=== PATIENT | female | born 1985 | race Caucasian/White ===

== ENCOUNTER 2020-04-12 14:24 | Outpatient (CLI) | payer OTHER, BC ==
--- NOTE | 2020-04-15 10:07 | Mammography Report ---
BILATERAL DIGITAL DIAGNOSTIC MAMMOGRAM 3D/2D: 04/12/2020 CLINICAL: Palpable left breast lump. Baseline exam. No prior exams were available for comparison. The tissue of both breasts is extremely dense, which l owers the sensitivity of mammography. There is a 1.5 cm irregular high density mass with an indistinct margin and grouped fine punctate aimee cifications in the left breast at 6 o'clock anterior depth. This is seen in additional views. This correlates as palpated. There also is an irregular equal density focal asymmetry with an obscured margin and grouped punctate calcifications in the left breast at 8 o'clock anterior depth. No other significant masses, calcifications, or other findings are seen in either breast. IMPRESSION: INCOMPLETE: NEEDS ADDITIONAL IMAGING EVALUATION The 1.5 cm irregular high density mass in the left breast at 6 o'clock anterior depth is indeterminat e. The irregular equal density focal asymmetry in the left breast at 8 o'clock anterior depth is indeter minate. An ultrasound is recommended. This was performed immediately following this exam. This exam was interpreted at Station ID: [id number]. NOTE: For mammograms, a report in lay terms will be sent to the patient. Approximately 15% of breast malignancies will not be visualized mammographically. In the management of a palpable breast mass, a negative mammogram must not discourage biopsy of a clinically suspicious lesion. Electronically Signed By: Katherine shanks/:04/12/2020 18:01:43 ACR BI-RADS Category 0: Incomplete 3340F PARENCHYMAL PATTERN: (VD) - The breast(s) demonstrate(s) extremely dense parenchyma, limiting the sen sitivity of mammography. BI-RADS CATEGORY: (0) - 0 Ultrasound [id number] Immediate follow-up LATERALITY: (B)
--- NOTE | 2020-04-15 10:08 | Ultrasound Report ---
LIMITED ULTRASOUND OF LEFT BREAST AND AXILLA: 04/12/2020 CLINICAL: Palpable left breast lump. No prior exams were available for comparison. Color flow ultrasound of the left breast 6 o'clock, 8 o'clock, and axilla regions was performed. Gr ay scale images of the real-time examination were reviewed. There is a 1.4 cm x 1.1 cm x 0.9 cm oval mass with a microlobulated margin in the left breast at 6 o' clock anterior depth 2 cm from the nipple. This correlates as palpated and with mammography findings . There are calcifications within the mass. Color flow imaging demonstrates that there is vasculari ty present. There also is a 0.5 cm x 0.4 cm x 0.9 cm irregular mass with an angular margin in the left breast at 8 o'clock in the retroareolar region 1 cm from the nipple. This irregular mass is hypoechoic. This correlates with mammography findings. There are related micro calcifications. Color flow imaging de monstrates that there is increased vascularity. Additionally, there is an irregular, enlarged, lobulated lymph node with eccentric cortical thickenin g up to 1.3 cm in the left axillary tail. This irregular lymph node displays fatty hilum. Color kay w imaging demonstrates that there is increased vascularity. IMPRESSION: SUSPICIOUS OF MALIGNANCY The 1.4 cm x 1.1 cm x 0.9 cm oval mass in the left breast at 6 o'clock anterior depth is suspicious o f malignancy. An ultrasound guided biopsy is recommended. The 0.5 cm x 0.4 cm x 0.9 cm irregular mass in the left breast at 8 o'clock in the retroareolar regio n is suspicious of malignancy. The irregular lymph node with eccentric cortical thickening in the left axillary tail is consistent w ith an enlarged lymph node and is suspicious of malignancy. An ultrasound guided biopsy is recommend ed. Findings and recommendations discussed with the patient by Dr. Angela Vazquez immediately following the study. This exam was interpreted at Station ID: [id number]. Electronically Signed By: Katherine shanks/:04/12/2020 18:08:48 Ultrasound BI-RADS: 4 Suspicious for malignancy BI-RADS CATEGORY: (4) - 4 None [id number] Immediate follow-up LATERALITY: ()
== END 2020-04-12 14:25 | disposition home or self-care (01) ==
LOC: DI 14:24
PROVIDERS: ATTEND Nurse Practitioner Family
DX: N63.25 Unspecified lump in the left breast, overlapping quadrants (principal); N63.24 Unspecified lump in the left breast, lower inner quadrant; R59.0 Localized enlarged lymph nodes
CPT/HCPCS: 76642; 77066

== ENCOUNTER 2020-05-08 13:32 | Outpatient (CLI) | payer OTHER, BC ==
[2020-05-08] MEDS ORDERED: BUFFERED LIDOCAINE 10 ML SYRINGE ONE ×3 (13:46→15:21)
[2020-05-08] MEDS ORDERED: BUFFERED LIDOCAINE 10 ML SYRINGE IU ONE (16:51)
--- NOTE | 2020-05-13 08:33 | Mammography Report ---
UNILATERAL LEFT DIGITAL DIAGNOSTIC MAMMOGRAM 3D/2D: 05/08/2020 CLINICAL: Post left breast ultrasound biopsy clip placement imaging. Comparison is made to exams dated: 04/12/2020 ultrasound, 04/12/2020 ultrasound, 04/12/2020 ultrasound, 04/12/2020 ultrasound, and 04/12/2020 mammogram - [facility]. There is a marker clip in the appropriate position in the left breast 6 o'clock position. The clip p laced in the left axilla is not visualized, as secondary to patient body habitus, the axilla was not able to be included in the mammogram field of view. IMPRESSION: POST PROCEDURE MAMMOGRAM FOR MARKER PLACEMENT There was a successful marker clip placement in the left breast at 6 o'clock position. The clip plac ed in the axilla is not evalauted secondary to incomplete visualization of the area. This exam was interpreted at Station ID: Unknown. NOTE: For mammograms, a report in lay terms will be sent to the patient. Approximately 15% of breast malignancies will not be visualized mammographically. In the management of a palpable breast mass, a negative mammogram must not discourage biopsy of a clinically suspicious lesion. Electronically Signed By: Angela Vazquez M.D. [facility]/:05/10/2020 15:27:39 ACR BI-RADS Category Post-procedure mammogram for marker placement Unknown BI-RADS CATEGORY: () - Unspecified - other recall n/a LATERALITY: (B)
== END 2020-05-08 13:33 | disposition home or self-care (01) ==
LOC: DI 13:32
PROVIDERS: ATTEND Nurse Practitioner Family
DX: C50.812 Malignant neoplasm of overlapping sites of left female breast (principal); C77.3 Secondary and unspecified malignant neoplasm of axilla and upper limb lymph nodes; Z17.0 Estrogen receptor positive status [ER+]
CPT/HCPCS: 19083; 38505

== ENCOUNTER 2021-08-29 19:44 | Day surgery (SDC) | payer BC, OTHER ==
[2021-08-29 20:19] LABS: BASOPHILS % (AUTO) 0.2 %; HGB - HEMOGLOBIN 12.7 g/dL (12.0-16.0); LYMPHOCYTES # (AUTO) 0.5 10^3/uL (1.5-3.5); MEAN CORPUSCULAR HGB CONC 34.3 g/dL (32.0-36.0); MEAN CORPUSCULAR VOLUME 87.3 fL (81.0-99.0); MEAN PLATELET VOLUME 8.1 fL (7.9-10.8); MONOCYTES # (AUTO) 0.9 10^3/uL (0.0-1.0); MONOCYTES % (AUTO) 6.7 %; NEUTROPHILS # (AUTO) 11.7 10^3/uL (1.5-6.6); NEUTROPHILS % (AUTO) 88.6 %; PLT - PLATELET COUNT 312 10^3/uL (130-450); RED BLOOD COUNT 4.24 10^6/uL (4.20-5.40); RED CELL DISTRIBUTION WIDTH 12.2 % (12.0-15.0); WHITE BLOOD COUNT 13.2 x10^3/uL (4.8-10.8)
[2021-08-29 20:32] LABS: ALBUMIN 4.4 g/dL (3.2-5.5); ALBUMIN/GLOBULIN RATIO 1.4 (1.0-2.2); BILIRUBIN,TOTAL 1.2 mg/dL (0.2-1.0); CALCIUM 9.6 mg/dL (8.5-10.3); CREATININE 0.7 mg/dL (0.4-1.0); POTASSIUM 3.6 mmol/L (3.5-5.0); TOTAL PROTEIN 7.6 g/dL (6.7-8.2)
--- NOTE | 2021-08-29 20:52 | ED Physician Documentation ---
PD HPI ABD PAIN - Stated complaint Stated Complaint: ABD PX - Chief complaint Chief Complaint: Abd Pain - History obtained from History obtained from: Patient - History of Present Illness Timing - onset: Enter time (13:00), Yesterday Timing - details: Gradual onset Pain level now: 8 Quality: Pain Location: All over / everywhere (predominantly RLQ) Radiation: Other (does not radiate from abdomen) Improved by: Laying still Worsened by: Moving, Palpation Associated symptoms: Nausea, Vomiting. No: Fever, Hematemesis, Diarrhea, Constipation, Dysuria Similar symptoms before: Other (some similarities to an episode of gastroenteritis she had in the past due to norovirus) Recently seen: Clinic (evaluated earlier today, advised to go to ED if worse) - Additional information Additional information: c/o abdominal pain, predominantly RLQ but otherwise feels the pain diffusely throughout abdomen, described as cramping, since yesterday at approximately 1 PM, associated with nausea and vomiting. Review of Systems Constitutional: denies: Fever, Chills, Sweats Cardiac: reports: Reviewed and negative Respiratory: reports: Reviewed and negative GI: reports: Abdominal Pain, Nausea, Vomiting. denies: Constipation, Diarrhea PD PAST MEDICAL HISTORY - Past Medical History Past Medical History: Yes CARDIAC SURGEON: Breast cancer - Past Surgical History Past Surgical History: Yes /CARDIAC SURGEON: Mastectomy (bilateral) - Allergies Allergies/Adverse Reactions: Allergies Allergy/AdvReac Type Severity Reaction Status Date / Time Pertussis Vaccines Allergy Unknown Verified 08/29/21 19:58 PD ED PE NORMAL - Vitals Vital signs reviewed: Yes - General General: Alert and oriented X 3, No acute distress, Well developed/nourished - HEENT HEENT: Moist mucous membranes - Neck Neck: Supple, no meningeal sign - Cardiac Cardiac: RRR, No murmur - Respiratory Respiratory: No respiratory distress, Clear bilaterally - Abdomen Abdomen: Soft, Non distended PD ED PE EXPANDED - Abdomen Abdomen: Tender to palpation, RLQ. No: Rebound, Guarding Results - Vitals Vitals: Vital Signs - 24 hr 08/29/21 08/29/21 08/30/21 19:51 22:22 00:07 Temperature 37.2 C 37.8 C Heart Rate 88 90 88 Respiratory 18 12 16 Rate Blood Pressure 128/70 129/74 134/72 H O2 Saturation 99 96 97 08/30/21 08/30/2122 02:27 04:00 04:03 Temperature Heart Rate 94 94 93 Respiratory 14 18 Rate Blood Pressure 101/52 L 116/78 116/78 O2 Saturation 96 95 94 08/30/21 08/30/21 06:00 08:00 Temperature Heart Rate 96 90 Respiratory 18 19 Rate Blood Pressure 114/62 119/60 O2 Saturation 98 99 Oxygen O2 Source Room air - Labs Labs: Laboratory Tests 08/29/21 08/29/21 08/29/21 20:13 20:15 20:15 WBC 13.2 H RBC 4.24 Hgb 12.7 Hct 37.0 MCV 87.3 MCH 30.0 MCHC 34.3 RDW 12.2 Plt Count 312 MPV 8.1 Neut # (Auto) 11.7 H Lymph # (Auto) 0.5 L [place] # (Auto) 0.9 Eos # (Auto) 0.0 Baso # (Auto) 0.0 Absolute Nucleated RBC 0.00 Nucleated RBC % 0.0 Sodium 137 Potassium 3.6 Chloride 98 L Carbon Dioxide 25 Anion Gap 14.0 H BUN 16 Creatinine 0.7 Estimated GFR (MDRD) 94 Glucose 131 H Calcium 9.6 Total Bilirubin 1.2 H AST 16 ALT 15 Alkaline Phosphatase 67 Total Protein 7.6 Albumin 4.4 Globulin 3.2 Albumin/Globulin Ratio 1.4 Lipase 20 L Urine Color YELLOW Urine Clarity HAZY Urine pH 6.0 Ur Specific [place] >=1.030 H Urine Protein TRACE Urine Glucose (UA) NEGATIVE Urine Ketones 40 H Urine Occult Blood SMALL H Urine Nitrite NEGATIVE Urine Bilirubin NEGATIVE Urine Urobilinogen 0.2 (NORMAL) Ur Leukocyte Esterase NEGATIVE Urine RBC 6-10 H Urine WBC 0-3 Ur Squamous Epith Cells FEW Squamous Urine Bacteria Rare Urine Mucus Moderate Strands Ur Microscopic Review INDICATED Urine Culture Comments NOT INDICATED Urine HCG, Qual Nasal Adenovirus (PCR) Nasal B. parapertussis DNA (PCR) Nasal Coronavir 229E PCR Nasal Coronavir HKU1 PCR Nasal Coronavir NL63 PCR Nasal Coronavir OC43 PCR Nasal Enterovir/Rhinovir PCR Nasal Influenza B PCR Nasal Influenza A PCR Nasal Parainfluen 1 PCR Nasal Parainfluen 2 PCR Nasal Parainfluen 3 PCR Nasal Parainfluen 4 PCR Nasal RSV (PCR) Nasal B.pertussis DNA PCR Nasal C.pneumoniae (PCR) [place] Human Metapneumo PCR Nasal M.pneumoniae (PCR) Nasal SARS-CoV-2 (PCR) 08/29/21 08/30/21 21:00 00:00 WBC RBC Hgb Hct MCV MCH MCHC RDW Plt Count MPV Neut # (Auto) Lymph # (Auto) [place] # (Auto) Eos # (Auto) Baso # (Auto) Absolute Nucleated RBC Nucleated RBC % Sodium Potassium Chloride Carbon Dioxide Anion Gap BUN Creatinine Estimated GFR (MDRD) Glucose Calcium Total Bilirubin AST ALT Alkaline Phosphatase Total Protein Albumin Globulin Albumin/Globulin Ratio Lipase Urine Color Urine Clarity Urine pH Ur Specific [place] Urine Protein Urine Glucose (UA) Urine Ketones Urine Occult Blood Urine Nitrite Urine Bilirubin Urine Urobilinogen Ur Leukocyte Esterase Urine RBC Urine WBC Ur Squamous Epith Cells Urine Bacteria Urine Mucus Ur Microscopic Review Urine Culture Comments Urine HCG, Qual NEGATIVE Nasal Adenovirus (PCR) NOT DETECTED Nasal B. parapertussis DNA (PCR) NOT DETECTED Nasal Coronavir 229E PCR NOT DETECTED Nasal Coronavir HKU1 PCR NOT DETECTED Nasal Coronavir NL63 PCR NOT DETECTED Nasal Coronavir OC43 PCR NOT DETECTED Nasal Enterovir/Rhinovir PCR NOT DETECTED Nasal Influenza B PCR NOT DETECTED Nasal Influenza A PCR NOT DETECTED Nasal Parainfluen 1 PCR NOT DETECTED Nasal Parainfluen 2 PCR NOT DETECTED Nasal Parainfluen 3 PCR NOT DETECTED Nasal Parainfluen 4 PCR NOT DETECTED Nasal RSV (PCR) NOT DETECTED Nasal B.pertussis DNA PCR NOT DETECTED Nasal C.pneumoniae (PCR) NOT DETECTED [place] Human Metapneumo PCR NOT DETECTED Nasal M.pneumoniae (PCR) NOT DETECTED Nasal SARS-CoV-2 (PCR) NOT DETECTED - Rads (name of study) CT A/P with IV contrast Radiology: Prelim report reviewed, See rad report PD MEDICAL DECISION MAKING - ED course Complexity details: reviewed results, re-evaluated patient, considered differential, d/w patient ED course: presents with RLQ pain and tenderness, CT A/P consistent with acute appendicitis. D/W Dr. Gupta (nutrition associate surgery for [facility]), will take patient to OR in the morning. Patient is given IV zosyn and pain controlled with IV morphine 2mg doses (patient requesting small doses) Departure - Departure Disposition: ED Transfer to [facility] Clinical Impression: Appendicitis Qualifiers: Appendicitis type: acute appendicitis Acute appendicitis type: unspecified acute appendicitis type Qualified Code(s): K35.80 - Unspecified acute appendicitis Condition: Stable Discharge Date/Time: 08/30/21 08:07
[2021-08-29 21:05] LABS: BILIRUBIN,URINE NEGATIVE (NEGATIVE); GLUCOSE, URINE (UA) NEGATIVE (NEGATIVE); KETONES,URINE (UA) 40 mg/dL (NEGATIVE); LEUKOCYTE ESTERASE, URINE NEGATIVE (NEGATIVE); NITRITE,URINE NEGATIVE (NEGATIVE); OCCULT BLOOD,URINE SMALL (NEGATIVE); PROTEIN,URINE TRACE mg/dL (NEGATIVE); UROBILINOGEN,URINE 0.2 (NORMAL) E.U./dL (NORMAL)
[2021-08-29] MEDS ORDERED: SODIUM CHLORIDE 0.9% 1,000 ML IV STA ×2 (21:07→22:48)
[2021-08-29] MEDS ORDERED: KETOROLAC 30 MG/ML VIAL IVP STA (21:07)
[2021-08-29] MEDS ORDERED: ONDANSETRON 4 MG/2 ML VIAL IVP STA (21:07)
[2021-08-29 21:08] LABS: CLARITY,URINE HAZY (CLEAR)
[2021-08-29] MEDS ORDERED: iohexoL-300 100 ML VIAL ONE (21:19)
[2021-08-29 21:24] LABS: BACTERIA,URINE Rare /HPF (None Seen); MUCUS,URINE Moderate Strands; SQUAMOUS EPITHELIAL CELL,UR FEW Squamous (<= Few); WBC,URINE 0-3 /HPF (0-5)
--- NOTE | 2021-08-29 22:07 | CT Report ---
PROCEDURE: Abdomen/Pelvis W INDICATIONS: RLQ pain, tenderness CONTRAST: IV CONTRAST: Isovue 300 ml: 100 PO CONTRAST: *NO PO CONTRAST TECHNIQUE: After the administration of intravenous contrast, 5 mm thick sections acquired from the diaphragms to the symphysis. 5 mm thick coronal and sagittal reformats were acquired. For radiation dose reducti on, the following was used: automated exposure control, adjustment of mA and/or kV according to risa ent size. COMPARISON: None. FINDINGS: Image quality: Excellent. ABDOMEN: Lung bases: Lung bases are clear. Heart size is normal. Solid organs: There is a small oval hypodensity within the right hepatic dome measuring up to 0.5 cm which is too small to characterize but likely represents a cyst. Gallbladder appears within normal li mits without calcified gallstones. Biliary system is non dilated. The spleen is normal in size. Panc reas enhances normally without peripancreatic fat stranding or fluid collections. No adrenal nodules . Kidneys demonstrate no hydronephrosis. Peritoneum and bowel: There is mild gastric wall thickening in the antrum. Small bowel loops demonst rate normal wall thickness and caliber. There is an appendicolith at the base of the appendix measur ing up to 1.2 cm with marked fluid distention of the appendix which measures up to 1.7 cm. There is m inimal appendiceal wall thickening and enhancement distally with minimal pericolonic fat stranding. A few additional small appendicoliths are also demonstrated within the appendix. There is nondistentio n of the colon distally beginning at the level of the mid transverse colon and extending through the descending and sigmoid colon. Evaluation of the colonic wall thickness is limited and a mild colitis cannot be excluded. There is a small amount of intraperitoneal free fluid. No free air. No discrete a bscess collection. Nodes and vessels: No retroperitoneal or mesenteric adenopathy by size criteria. Aorta and inferior vena cava are normal in size. Miscellaneous: No ventral hernias. PELVIS: Genitourinary: Bladder wall thickness is normal. There is a thin-walled cyst in the right adnexa lynne suring up to 3.6 cm likely representing a physiologic ovarian cyst. Miscellaneous: No inguinal hernias or adenopathy. Bones: No suspicious bony lesions. 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 No vertebral body compression fractures. IMPRESSION: 1. Marked fluid distention of the appendix with an appendicolith at its base. Minimal appendiceal wal l thickening and enhancement are demonstrated distally as well as minimal periappendiceal fat strandi ng. The findings are consistent with acute appendicitis. No free air or abscess collection to suggest definite perforation. 2. Small amount of free fluid in the pelvis is nonspecific but appears within physiologic limits. 3. Thin-walled cyst in the right adnexa likely represents a physiologic ovarian cyst. Findings discussed with Dr. Crowe on 08/29/2021 at 10:00 PM. Reviewed by: Al Wong MD on 08/29/2021 10:05 PM PST Approved by: Al Wong MD on 08/29/2021 10:05 PM PST Station ID: [id number]
[2021-08-29 22:28] LABS: HCG UR QUAL NEGATIVE
[2021-08-29] MEDS ORDERED: PIPERACILLIN/TAZOBACTAM 3.375 GM in SODIUM CHLORIDE 0.9% MINIBAG 100 ML IV STA (23:57)
[2021-08-30 01:16] LABS: B. PARAPERTUSSIS- RESP PCR PAN NOT DETECTED; B. PERTUSSIS- RESP PCR PANEL NOT DETECTED; C. PNEUMONIAE- RESP PCR PANEL NOT DETECTED; CORONAVIRUS 229E-RESP PCR NOT DETECTED; CORONAVIRUS HKU1-RESP PCR NOT DETECTED; CORONAVIRUS NL63-RESP PCR NOT DETECTED; CORONAVIRUS OC43-RESP PCR NOT DETECTED; HUMAN METAPNEUMOVIRUS NOT DETECTED; INFLUENZA A- RESP PCR PANEL NOT DETECTED; INFLUENZA B - RESP PCR PANEL NOT DETECTED; M. PNEUMONIAE- RESP PCR PANEL NOT DETECTED; PARAINFLUENZA VIRUS 1 NOT DETECTED; PARAINFLUENZA VIRUS 2 NOT DETECTED; PARAINFLUENZA VIRUS 3 NOT DETECTED; PARAINFLUENZA VIRUS 4 NOT DETECTED; RHINOVIRUS/ENTEROVIRUS NOT DETECTED; RSV- RESP PCR PANEL NOT DETECTED; SARS-CoV-2 -RESP PCR PANEL NOT DETECTED
[2021-08-30] MEDS ORDERED: iohexoL-300 100 ML VIAL IVP ONE (02:00)
[2021-08-30] MEDS ORDERED: MORPHINE 2 MG/ML CARPUJECT IVP STA ×2 (03:53→06:19)
--- NOTE | 2021-08-30 07:21 | HISTORY & PHYSICAL EXAMINATION ---
Chief Complaint - Chief Complaint Chief Complaint: Abdominal pain History of Present Illness - History of Present Illness HPI Comment/Other: 36 year old woman with abdominal pain starting a little over one day ago, associated with anorexia and emesis. No diarrhea. Abdominal pain was generalized to begin with and has now localized to the right lower abdomen. Alleviated at rest, worse with movement. No past abdominal surgery, however has had bilateral mastectomies for breast cancer. She has known ovarian cysts. 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 - Substance History Use: Uses substance without health or social issues: NONE Meds/Allgy - Allergies Allergies/Adverse Reactions: Allergies Allergy/AdvReac Type Severity Reaction Status Date / Time Pertussis Vaccines Allergy Unknown Verified 08/29/21 19:58 Review of Systems - Gastrointestinal Gastrointestinal: reports: Abdominal pain, Vomiting - All Other Systems All Other Systems: reports: Reviewed and negative Exam - Vital Signs Vital Signs: Vital Signs x48h Pulse Resp BP Pulse Ox 08/30/21 06:00 96 18 114/62 98 08/30/21 04:03 93 116/78 94 08/30/21 04:00 94 18 116/78 95 08/30/21 02:27 94 14 101/52 L 96 08/30/21 00:07 88 16 134/72 H 97 - Physical Exam General Appearance: positive: No acute distress Eyes Bilateral: positive: Normal inspection ENT: positive: ENT inspection nml Neck: positive: Nml inspection Respiratory: positive: No respiratory distress Cardiovascular: positive: Regular rate & rhythm Abdomen: positive: Tenderness, Other (Mild distension. Tender in RLQ. No rebound or guarding.) Extremities: positive: Full ROM, Nml appearance Neurologic/Psychiatric: positive: Oriented x3 Conclusion/Plan - Problem List (1) Appendicitis Conclusion/Plan: To OR for laparoscopic appendectomy Abx started in ED NPO, IVF Consented after benefits and risks, including bleeding, infection, pain, damage to nearby structures, discussed Qualifiers: Appendicitis type: acute appendicitis Acute appendicitis type: unspecified acute appendicitis type Qualified Code(s): K35.80 - Unspecified acute ap pendicitis - Lab Results Fish Bones: 08/29/21 20:15 08/29/21 20:15 - Diagnostic Imaging Results Diagnostic Imaging Results: positive: Final report reviewed Diagnostic Imaging Results Comments: Large, dilated, fluid filled appendix with two fecaliths. Some pelvic haziness with ovarian cyst and possible free fluid. Uterine fibroids.
[2021-08-30] MEDS ORDERED: ONDANSETRON 4 MG/2 ML VIAL IVP PRN ×2 (08:04→09:42)
[2021-08-30] MEDS ORDERED: NALOXONE 0.4 MG/ML VIAL IVP PRN (08:04)
[2021-08-30] MEDS ORDERED: ATROPINE ABBOJECT 1 MG/10 ML SYRINGE IVP PRN (08:04)
[2021-08-30] MEDS ORDERED: ePHEDrine 50 MG/ML VIAL IVP PRN (08:04)
[2021-08-30] MEDS ORDERED: HYDROmorphone 0.5 MG/0.5 ML SYRINGE IVP PRN (08:04)
[2021-08-30] MEDS ORDERED: METOCLOPRAMIDE 10 MG/2 ML VIAL IVP PRN (08:04)
[2021-08-30] MEDS ORDERED: MORPHINE 2 MG/ML CARPUJECT IVP PRN (08:04)
[2021-08-30] MEDS ORDERED: fentaNYL 100 MCG/2 ML VIAL IVP PRN (08:04)
--- NOTE | 2021-08-30 08:04 | ANESTHESIA ---
Pre-Anesthesia VS, & Labs - Diagnosis acute appendicitis - Procedure laparoscopic appendectomy Vital Signs: Temp Pulse Resp BP Pulse Ox 37.8 C 96 18 114/62 98 08/29/21 22:22 08/30/21 06:00 08/30/21 06:00 08/30/21 06:00 08/30/21 06:00 Height: 5 ft 6 in Weight (kg): 61.235 kg Body Mass Index: 21.7 BMI Classification: Healthy weight - NPO >8 hours - Is Patient ?: No - Lab Results Current Lab Results: Laboratory Tests 08/29/21 20:15: Sodium 137, Potassium 3.6, Chloride 98 L, Carbon Dioxide 25, Anion Gap 14.0 H, BUN 16, Creatinine 0.7, Estimated GFR (MDRD) 94, Glucose 131 H , Calcium 9.6, Total Bilirubin 1.2 H, AST 16, ALT 15, Alkaline Phosphatase 67, Total Protein 7.6, Albumin 4.4, Globulin 3.2, Albumin/Globulin Ratio 1.4, Lipase 20 L 08/29/21 20:15: WBC 13.2 H, RBC 4.24, Hgb 12.7, Hct 37.0, MCV 87.3, MCH 30.0, MCHC 34.3, RDW 12.2, Plt Count 312, MPV 8.1, Neut # (Auto) 11.7 H, Lymph # (Auto) 0.5 L, [place] # (Auto) 0.9, Eos # (Auto) 0.0, Baso # (Auto) 0.0, Absolute Nucleated RBC 0.00, Nucleated RBC % 0.0 Lab results reviewed: Yes Fish Bones: 08/29/21 20:15 08/29/21 20:15 Home Medications and Allergies Allergies/Adverse Reactions: Allergies Allergy/AdvReac Type Severity Reaction Status Date / Time Pertussis Vaccines Allergy Unknown Verified 08/29/21 19:58 Anes History & Medical History - Anesthetic History Anesthesia Complications: reports: No previous complications Family history of Anesthesia Complications: Denies Family history of Malignant Hyperthermia: Denies - Medical History Cardiovascular: reports: None Pulmonary: reports: None Gastrointestinal: reports: None Urinary: reports: None Neuro: reports: None Musculoskeletal: reports: None Smoking Status: Never smoker History of Cancer?: Yes Other Past Medical History: 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
[2021-08-30] MEDS ORDERED: PIPERACILLIN/TAZOBACTAM 3.375 GM in SODIUM CHLORIDE 0.9% MINIBAG 100 ML IV STA (08:13)
[2021-08-30] MEDS ORDERED: BUPIVACAINE 0.5% PF 10 ML VIAL SUBQ ONE ×2 (08:39)
[2021-08-30] MEDS ORDERED: LACTATED RINGERS 1,000 ML IV SCH (09:00)
[2021-08-30] MEDS ORDERED: LACTATED RINGERS 1,000 ML IV ONE (09:53)
--- NOTE | 2021-08-30 09:55 | OPERATIVE REPORT ---
Operative Report - General Procedure Date: 08/30/21 Pre-Op Diagnosis: Acute appendicitis Procedure Performed: Laparoscopic appendectomy Post Op Diagnosis: Acute appendicitis - Procedure Note Primary Surgeon: Gurinder Gupta Anesthesia Technique: General ET tube IV Fluids (mL): 1,200 Estimated Blood Loss (mL): 10 Urine Output (mL): 200 Indications: 36 year old woman who presented with one day of abdominal pain localizing to the right lower quadrant. Found to have leukocytosis and CTAP demonstrating acute appendicitis. Findings: Large, inflamed appendix with omental adhesions and some free fluid Complications: None apparent - Other Other Information/Narrative: The patient was taken to the operating room where antibiotics were administered and SCDs were placed. After starting general anesthesia, a barajas catheter was placed. The abdomen was prepped and draped in the usual fashion. Local anesthesia (0.5% bupivacaine) was administered at the infraumbilical skin. A transverse incision was made and carried down to the fascia, and the peritoneal cavity was entered with Kevin technique. A 12mm balloon trocar was placed and pneumoperitoneum achieved. A 5-30 laparoscope was introduced and the peritoneal contents were inspected. An inflamed appendix was noted in the right lower quadrant. Two more 5mm ports were placed under direct vision in the suprapubic and left lower quadrant and the patient was placed in trendelenburg and right side up. The appendix was grasped and dissected down to the base. After creating a window at the base of the appendix, the appendix was taken using a 45mm Endo- FAHAD stapler intestinal load, and the mesoappendix taken with a ligasure energy device. Some simple fluid in the abdomen was suctioned, and the staple lines inspected demonstrating no bleeding or breakdown. The appendix specimen was removed with an endocatch bag, pneumoperitoneum evacuated, and trocars removed under direct vision. The infraumbilical fascia was closed with 0-vicryl suture and skin closed with 4-0 monocryl and surgical glue. All instrument counts were reported correct. The barajas was removed and patient was awakened and taken to the recovery room in good condition.
[2021-08-30] MEDS ORDERED: ACETAMINOPHEN 500 MG TABLET PO SCH (10:00)
--- NOTE | 2021-08-30 10:19 | ANESTHESIA POST OP EVALUATION ---
Anesthesia Post Eval - Post Anesthesia Eval Vitals: Last Vital Signs Temp 37.2 C 08/30/21 10:05 Pulse 80 08/30/21 10:05 Resp 20 08/30/21 10:05 BP 121/73 08/30/21 10:05 Pulse Ox 98 08/30/21 10:05 CV Function Including HR & BP: Stable Pain Control: Satisfactory Nausea & Vomiting: Negative Mental Status: Baseline Respiratory Status: Airway Patent Hydration Status: Satisfactory Anesthesia Complications: None
[2021-08-30] MEDS: oxyCODONE 5 MG TABLET PO PRN ×2 (10:44→14:56)
[2021-08-30 12:48] VITALS: BP 112/67
--- NOTE | 2021-08-30 14:51 | Discharge Plan ---
Discharge Plan Problem Reviewed?: Yes Disposition: Home, Self Care Condition: Stable Prescriptions: traMADol [Ultram] 50 mg PO Q4-6H #10 tablet Diet: Regular Activity Restrictions: Additional Comments (No heavy lifting greater than 10lb for 6 weeks) Shower Restrictions: No (Can shower daily. No baths or hot tubs for 2 weeks.) Driving Restrictions: No (Can drive as long as not taking narcotics (including tramadol)) Additional Instructions or Follow Up instructions: Call to make a an appointment with general surgery clinic in 1-2 weeks, either with Dr. Monet or Dr. Padilla No Smoking: If you smoke, Please STOP! Call for help.
== END 2021-08-30 15:00 | disposition home or self-care (01) ==
LOC: ED 19:44 → SDS 08-30 08:04 → MS2 08-30 10:12 → SDS 08-30 15:00
PROVIDERS: ATTEND Surgery
PROC: 0DTJ4ZZ Resection of Appendix, Percutaneous Endoscopic Approach (ICD-10-PCS; principal; 2021-08-30 08:00)
DX: K35.80 Unspecified acute appendicitis (principal); Z20.822 Contact with and (suspected) exposure to COVID-19; Z32.02 Encounter for pregnancy test, result negative
CPT/HCPCS: 0202U; 36415; 44970; 74177; 80053; 81001; 81025; 83690; 85025; 96361; 96365; 96375; 96376; 99204; 99284; 99285; A9270; J7120; Q9967; 81003; 87086

== ENCOUNTER 2021-09-01 15:56 | Observation (INO) | payer OTHER ==
[~2021-09-01 15:56] MED LIST: ACETAMINOPHEN 1,000 MG/100 ML 100 ML IV ONE; BUPIVACAINE 0.5% PF 10 ML VIAL ONE; DEXAMETHASONE 4 MG/ML VIAL ONE; GLYCOPYRROLATE 1 MG/5 ML VIAL ONE; KETOROLAC 30 MG/ML VIAL ONE; LIDOCAINE-MPF 2% 5 ML VIAL ONE; MIDAZOLAM 2 MG/2 ML VIAL ONE; NEOSTIGMINE 1 MG/1 ML 10 ML MDV ONE; ONDANSETRON 4 MG/2 ML VIAL ONE; PROPOFOL 200 MG/20 ML VIAL IVP ONE; ROCURONIUM 50 MG/5 ML VIAL ONE; fentaNYL 100 MCG/2 ML VIAL ONE
[2021-09-01] MEDS ORDERED: ONDANSETRON 4 MG/2 ML VIAL IVP STA (16:31)
[2021-09-01] MEDS ORDERED: SODIUM CHLORIDE 0.9% 1,000 ML IV STA (16:31)
--- NOTE | 2021-09-01 16:32 | ED Physician Documentation ---
PD HPI ABD PAIN - Stated complaint Stated Complaint: POST OP FEVER NAUSEA VOMITIT - Chief complaint Chief Complaint: Abd Pain - History obtained from History obtained from: Patient - Additional information Additional information: She had a laparoscopic appendectomy a little over 48 hours ago. Has not had a bowel movement since but presents with increasing distention and now vomiting today. Pain is not too bad. 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 : None HEENT: None Musculoskeletal: None - Past Surgical History Past Surgical History: Yes /ELECTRIC SEALING MACHINE OPERATOR: Mastectomy (bilateral) - Present Medications Home Medications: Ambulatory Orders Medication Instructions Recorded Confirmed Acetaminophen [Tylenol] 1,000 mg PO Q8HR tablet 08/30/21 traMADol [Ultram] 50 mg PO Q4-6H #10 tablet 08/30/21 - Allergies Allergies/Adverse Reactions: Allergies Allergy/AdvReac Type Severity Reaction Status Date / Time Pertussis Vaccines Allergy Unknown Verified 09/01/21 16:09 - Social History Does the pt smoke?: No Smoking Status: Never smoker Does the pt drink ETOH?: No - Immunizations Immunizations are current?: Yes PD ED PE NORMAL - Vitals Vital signs reviewed: Yes - General General: Alert and oriented X 3, No acute distress - HEENT HEENT: PERRL, EOMI - Neck Neck: Supple, no meningeal sign, No bony TTP - Cardiac Cardiac: RRR, No murmur - Respiratory Respiratory: No respiratory distress, Clear bilaterally - Abdomen Abdomen: Other (Distended abdomen with tinkling high-pitched bowel tones. Mild tenderness especially in the right lower quadrant without surgical signs. Incisions are clean dry and intact.) - Back Back: No CVA TTP, No spinal TTP - Derm Derm: Normal color, Warm and dry - Extremities Extremities: No edema, No calf tenderness / cord - Neuro Neuro: Alert and oriented X 3, Normal speech Results - Vitals Vitals: Vital Signs - 24 hr 09/01/21 09/01/21 16:03 17:05 Temperature 36.8 C Heart Rate 109 H 86 Respiratory 18 17 Rate Blood Pressure 150/78 H 117/67 O2 Saturation 99 98 Oxygen O2 Source Room air - Labs Labs: Laboratory Tests 09/01/21 16:46 Sodium 134 L Potassium 3.3 L Chloride 95 L Carbon Dioxide 29 Anion Gap 10.0 BUN 9 Creatinine 0.7 Estimated GFR (MDRD) 94 Glucose 130 H Calcium 8.8 PD MEDICAL DECISION MAKING - ED course ED course: Spoke with our on-call general surgeon, Dr. Crowley after initial evaluation. He agreed that based on my description she probably has an ileus, less likely an obstruction. Requests an abdominal series x-ray and I will call him back after that. X-ray consistent with ileus versus SBO, Dr. Crowley will place in observation for bowel rest. Departure - Departure Disposition: ED Place in Observation Clinical Impression: Ileus following gastrointestinal surgery Condition: Stable
[2021-09-01 16:52] LABS: NEUTROPHILS # (AUTO) 7.6 10^3/uL (1.5-6.6)
[2021-09-01 16:58] LABS: CALCIUM 8.8 mg/dL (8.5-10.3); CREATININE 0.7 mg/dL (0.4-1.0); POTASSIUM 3.3 mmol/L (3.5-5.0)
--- NOTE | 2021-09-01 17:08 | XRAY Report ---
PROCEDURE: Abdomen Acute INDICATIONS: post op abd pain TECHNIQUE: One view chest and two views of the abdomen were acquired. COMPARISON: CT abdomen/pelvis 08/29/2021 FINDINGS: Surgical changes and devices: None. Chest: Lungs are clear. Heart size is normal. No pleural effusions. No pneumoperitoneum. Abdomen: Dilated air-filled loops of small bowel are seen in the central abdomen with differential ai r-fluid levels on upright view. No suspicious calcifications. Visualized solid organ contours appear normal. Bones: No suspicious bony lesions. IMPRESSION: Dilated air-filled loops of small bowel in the central abdomen with differential air-flu id levels are suspicious for small bowel obstruction versus ileus. Reviewed by: Bridger Gates MD on 09/01/2021 5:07 PM PST Approved by: Bridger Gates MD on 09/01/2021 5:07 PM PST Station ID: [id number]
[2021-09-01 17:09] LABS: BASOPHILS % (AUTO) 0.5 %; EOSINOPHILS # (AUTO) 0.1 10^3/uL (0.0-0.7); EOSINOPHILS % (AUTO) 0.6 %; HCT - HEMATOCRIT 36.9 % (37.0-47.0); HGB - HEMOGLOBIN 12.4 g/dL (12.0-16.0); LYMPHOCYTES # (AUTO) 0.5 10^3/uL (1.5-3.5); LYMPHOCYTES % (AUTO) 5.3 %; MEAN CORPUSCULAR HEMOGLOBIN 29.6 pg (27.0-31.0); MEAN CORPUSCULAR HGB CONC 33.6 g/dL (32.0-36.0); MEAN CORPUSCULAR VOLUME 88.1 fL (81.0-99.0); MEAN PLATELET VOLUME 8.9 fL (7.9-10.8); MONOCYTES # (AUTO) 0.4 10^3/uL (0.0-1.0); PLT - PLATELET COUNT 287 10^3/uL (130-450); RED BLOOD COUNT 4.19 10^6/uL (4.20-5.40); RED CELL DISTRIBUTION WIDTH 12.1 % (12.0-15.0); WHITE BLOOD COUNT 8.6 x10^3/uL (4.8-10.8)
[2021-09-01] MEDS: D5.45NS W/20 MEQ KCL 1,000 ML IV SCH (17:44)
[2021-09-01] MEDS ORDERED: METOCLOPRAMIDE 10 MG/2 ML VIAL IVP STA (17:54)
[2021-09-01 17:58] LABS: DIFFERENTIAL COMMENT MANUAL=AUTO DIFF; PLATELET ESTIMATE, MANUAL NORMAL (130-450,000) (NORMAL); PLATELET MORPHOLOGY NORMAL APPEARANCE (NORMAL); RBC MORPHOLOGY (MULTIPLE) NORMAL APPEARANCE (NORMAL)
--- NOTE | 2021-09-01 18:00 | SURGERY HX AND PHYSICAL(T) ---
Surgical History & Physical - Chief Complaint/HPI Chief Complaint: abdominal distension, n/v History of Present Illness: Pt is a 36 yo F with s/p appendectomy 08/30/21 who presents with abdominal distension and n/v. Reports stable distension since surgery. [place] like needed to have BM but none since day prior to surgery. Emesis today, just what she ate, NBNB. Also reported low fever at home. Had taken some oxy left over from previous surgery and some tylenol. No pain meds since this am. Pain with movement/palpation at incisions; no redness or drainage from incisions. In ED still with some nausea; waxes and wanes. Currently afebrile, initially mildy tachy in 100s, repeat in 80s; normotensive. Plain film imaging with dilated loops of small bowel in central abdomen with air fluid levels; some air in colon as well. 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 Urinary: None Musculoskeletal: None PSH Other: bilateral mastectomy Smoking Status: Never smoker Does the pt drink ETOH?: No - Home Meds and Allergies Allergies/Adverse Reactions: Allergies Allergy/AdvReac Type Severity Reaction Status Date / Time Pertussis Vaccines Allergy Unknown Verified 09/01/21 16:09 - Review of Systems Constitutional: Fever Skin: No: Jaundice, Pallor Cardiac: No: AFIB, CAD Respiratory: No: Shortness of breath Gastrointestinal: Nausea, Vomiting, Abdominal pain Gentinourinary: No: Dysuria Neurological: No: Dizziness, Headache Musculoskeletal: No: Muscle pain Endocrinologic: No: Sweating - Vital Signs Heart Rate: 86 Blood Pressure: 117/67 Temperature: 36.8 C Respiratory Rate: 17 O2 Saturation: 98 Weight (kg): 61.235 kg Height: 1.68 m - Physical Exam General Appearance: positive: No acute distress, Alert Eyes Bilatera: positive: EOMI ENT: positive: No signs of dehydration Neck: positive: Trachea midline Respiratory: positive: No respiratory distress Cardiovascular: positive: Regular rate & rhythm Abdomen: positive: Other (soft, distended, tympanitic, mild diffuse TTP; incisions CDI; appropriate mina-incisional TTP; no rebound/guarding) Skin: positive: Color nml Extremities: positive: No pedal edema Neurologic/Psychiatric: positive: Oriented x3, Mood/affect nml - Patient Review Patient Review: Problems were reviewed with the patient during this visit. Medications were reviewed with the patient during this visit. Allergies were reviewed this patient during this visit. Pertinent Tests Reviewed: All pertitent test for this patient were reviewed. - Assessment & Plan Assessment and Plan: Pt is a 36 yo F recently with appendicitis, now s/p lap appendectomy 08/30/21 who p/w n/v and distension. Plain film with dilated loops and air fluid levels; some air in colon. Likely post-op ileus. Possible related to developing abscess but currently afebrile and a little early for this. - admit to gen surg - NPO/IVF - IV tylenol or toradol; pt wants to avoid narcotics and these could worsen ileus - baseline labs tonight and trend tomorrow - hold off on NG for now; discussed may need one if continues to have n/v - strict I/Os - if fails to progress will consider imaging to look for cause of ileus Shahid Crowley MD General Surgery
[2021-09-01] MEDS ORDERED: SODIUM CHLORIDE FLUSH 0.9% 10 ML SYRINGE IVP PRN (18:23)
[2021-09-01] MEDS ORDERED: HYDROcod/ACETAM 5/325 MG TABLET PO PRN (18:23)
[2021-09-01] MEDS ORDERED: ACETAMINOPHEN 325 MG TABLET PO PRN (18:23)
[2021-09-01] MEDS ORDERED: MORPHINE 2 MG/ML CARPUJECT IVP PRN (18:23)
[2021-09-01] MEDS ORDERED: ACETAMINOPHEN 1,000 MG/100 ML 100 ML IV PRN (18:35)
[2021-09-01] MEDS ORDERED: traMADol 50 MG TABLET PO PRN (18:41)
[2021-09-01 19:09] LABS: HCT - HEMATOCRIT 35.8 % (37.0-47.0); HGB - HEMOGLOBIN 12.2 g/dL (12.0-16.0); MEAN CORPUSCULAR HEMOGLOBIN 30.1 pg (27.0-31.0); MEAN CORPUSCULAR HGB CONC 34.1 g/dL (32.0-36.0); MEAN CORPUSCULAR VOLUME 88.4 fL (81.0-99.0); MEAN PLATELET VOLUME 8.7 fL (7.9-10.8); RED BLOOD COUNT 4.05 10^6/uL (4.20-5.40); WHITE BLOOD COUNT 9.9 x10^3/uL (4.8-10.8)
[2021-09-01 19:10] LABS: CALCIUM 8.5 mg/dL (8.5-10.3); CREATININE 0.6 mg/dL (0.4-1.0); POTASSIUM 3.7 mmol/L (3.5-5.0)
[2021-09-01 20:01] LABS: B. PARAPERTUSSIS- RESP PCR PAN NOT DETECTED; B. PERTUSSIS- RESP PCR PANEL NOT DETECTED; C. PNEUMONIAE- RESP PCR PANEL NOT DETECTED; CORONAVIRUS 229E-RESP PCR NOT DETECTED; CORONAVIRUS HKU1-RESP PCR NOT DETECTED; CORONAVIRUS NL63-RESP PCR NOT DETECTED; CORONAVIRUS OC43-RESP PCR NOT DETECTED; HUMAN METAPNEUMOVIRUS NOT DETECTED; INFLUENZA A- RESP PCR PANEL NOT DETECTED; INFLUENZA B - RESP PCR PANEL NOT DETECTED; M. PNEUMONIAE- RESP PCR PANEL NOT DETECTED; PARAINFLUENZA VIRUS 1 NOT DETECTED; PARAINFLUENZA VIRUS 2 NOT DETECTED; PARAINFLUENZA VIRUS 3 NOT DETECTED; PARAINFLUENZA VIRUS 4 NOT DETECTED; RHINOVIRUS/ENTEROVIRUS NOT DETECTED; RSV- RESP PCR PANEL NOT DETECTED; SARS-CoV-2 -RESP PCR PANEL NOT DETECTED
[2021-09-01] MEDS: KETOROLAC 15 MG/ML VIAL IVP SCH (21:49)
[2021-09-01] MEDS: LACTATED RINGERS 1,000 ML IV SCH (21:49)
[2021-09-01] MEDS: ONDANSETRON 4 MG/2 ML VIAL IVP PRN (21:50)
[2021-09-01] MEDS: HEPARIN 5,000 UNIT/ML VIAL SUBQ SCH (21:50)
[2021-09-02] MEDS: SODIUM CHLORIDE FLUSH 0.9% 10 ML SYRINGE IVP SCH ×3 (00:27→17:53)
[2021-09-02] MEDS: D5.45NS W/20 MEQ KCL 1,000 ML IV SCH (02:06)
[2021-09-02 04:57] LABS: HCT - HEMATOCRIT 30.8 % (37.0-47.0); HGB - HEMOGLOBIN 10.7 g/dL (12.0-16.0); MEAN CORPUSCULAR HEMOGLOBIN 30.7 pg (27.0-31.0); MEAN CORPUSCULAR HGB CONC 34.7 g/dL (32.0-36.0); MEAN CORPUSCULAR VOLUME 88.3 fL (81.0-99.0); MEAN PLATELET VOLUME 8.6 fL (7.9-10.8); RED BLOOD COUNT 3.49 10^6/uL (4.20-5.40); RED CELL DISTRIBUTION WIDTH 12.1 % (12.0-15.0)
[2021-09-02 05:07] LABS: CALCIUM 8.6 mg/dL (8.5-10.3); CREATININE 0.8 mg/dL (0.4-1.0); POTASSIUM 3.4 mmol/L (3.5-5.0)
[2021-09-02] MEDS: KETOROLAC 15 MG/ML VIAL IVP SCH ×3 (05:38→21:34)
[2021-09-02] MEDS: ONDANSETRON 4 MG/2 ML VIAL IVP PRN ×3 (05:40→17:52)
[2021-09-02] MEDS: HEPARIN 5,000 UNIT/ML VIAL SUBQ SCH ×3 (05:43→21:34)
--- NOTE | 2021-09-02 08:10 | PROVIDER PROGRESS NOTE ---
Subjective - General Admit Date: 09/01/21 Procedure Date: 08/30/21 Post Op Days: 3 - Other Other Information/Narrative: NAEO. Feeling better this am. Still bloated and some nausea, but had multiple bowel movements overnight. Reports good, clear UOP. Last emesis 10 pm last night. Pain controlled. Ambulating independently. Objective - Patient Data Reviewed Vital Signs: Yes Vital Signs: 113/71; HR 84; 96% on RA; afebrile Weight: Weight 08/31/21 09/01/21 09/02/21 23:59 23:59 23:59 Weight (kg) 64.5 kg Intake & Output: Intake and Output Totals x24h 08/31/21 09/01/21 09/02/21 23:59 23:59 23:59 Intake Total 1000 Output Total 200 Balance -200 1000 - Lab Results Lab Results: 09/02/21 04:41 09/02/21 04:41 Other Lab Results: Lab Results x24hrs 09/02/21 09/02/21 09/01/21 Range/Units 04:41 04:41 18:45 WBC 8.0 (4.8-10.8) x10^3/uL RBC 3.49 L (4.20-5.40) 10^6/uL Hgb 10.7 L (12.0-16.0) g/dL Hct 30.8 L (37.0-47.0) % MCV 88.3 (81.0-99.0) fL MCH 30.7 (27.0-31.0) pg MCHC 34.7 (32.0-36.0) g/dL RDW 12.1 (12.0-15.0) % Plt Count 262 (130-450) 10^3/uL MPV 8.6 (7.9-10.8) fL Neut # (Auto) (1.5-6.6) 10^3/uL Lymph # (Auto) (1.5-3.5) 10^3/uL Stone # (Auto) (0.0-1.0) 10^3/uL Eos # (Auto) (0.0-0.7) 10^3/uL Baso # (Auto) (0.0-0.1) 10^3/uL Absolute Nucleated RBC x10^3/uL Band Neuts % (Manual) Abnorm Lymph % (Manual) Nucleated RBC % /100WBC Neutrophils # (Manual) Lymphocytes # (Manual) Monocytes # (Manual) Eosinophils # (Manual) Basophils # (Manual) Differential Comment Platelet Estimate (NORMAL) Platelet Morphology (NORMAL) RBC Morph Micro Appear (NORMAL) Sodium 136 133 L (135-145) mmol/L Potassium 3.4 L 3.7 (3.5-5.0) mmol/L Chloride 101 97 L (101-111) mmol/L Carbon Dioxide 26 26 (21-32) mmol/L Anion Gap 9.0 10.0 (6-13) BUN 13 9 (6-20) mg/dL Creatinine 0.8 0.6 (0.4-1.0) mg/dL Estimated GFR (MDRD) 81 L 112 (>89) Glucose 113 H 140 H (70-100) mg/dL Calcium 8.6 8.5 (8.5-10.3) mg/dL Nasal Adenovirus (PCR) Nasal B. parapertussis DNA (PCR) Nasal Coronavir 229E PCR Nasal Coronavir HKU1 PCR Nasal Coronavir NL63 PCR Nasal Coronavir OC43 PCR Nasal Enterovir/Rhinovir PCR Nasal Influenza B PCR Nasal Influenza A PCR Nasal Parainfluen 1 PCR Nasal Parainfluen 2 PCR Nasal Parainfluen 3 PCR Nasal Parainfluen 4 PCR Nasal RSV (PCR) Nasal B.pertussis DNA PCR Nasal C.pneumoniae (PCR) Mendez Human Metapneumo PCR Nasal M.pneumoniae (PCR) Nasal SARS-CoV-2 (PCR) 09/01/21 09/01/21 09/01/21 Range/Units 18:45 17:44 16:46 WBC 9.9 (4.8-10.8) x10^3/uL RBC 4.05 L (4.20-5.40) 10^6/uL Hgb 12.2 (12.0-16.0) g/dL Hct 35.8 L (37.0-47.0) % MCV 88.4 (81.0-99.0) fL MCH 30.1 (27.0-31.0) pg MCHC 34.1 (32.0-36.0) g/dL RDW 12.0 (12.0-15.0) % Plt Count 300 (130-450) 10^3/uL MPV 8.7 (7.9-10.8) fL Neut # (Auto) (1.5-6.6) 10^3/uL Lymph # (Auto) (1.5-3.5) 10^3/uL Stone # (Auto) (0.0-1.0) 10^3/uL Eos # (Auto) (0.0-0.7) 10^3/uL Baso # (Auto) (0.0-0.1) 10^3/uL Absolute Nucleated RBC x10^3/uL Band Neuts % (Manual) Abnorm Lymph % (Manual) Nucleated RBC % /100WBC Neutrophils # (Manual) Lymphocytes # (Manual) Monocytes # (Manual) Eosinophils # (Manual) Basophils # (Manual) Differential Comment Platelet Estimate (NORMAL) Platelet Morphology (NORMAL) RBC Morph Micro Appear (NORMAL) Sodium 134 L (135-145) mmol/L Potassium 3.3 L (3.5-5.0) mmol/L Chloride 95 L (101-111) mmol/L Carbon Dioxide 29 (21-32) mmol/L Anion Gap 10.0 (6-13) BUN 9 (6-20) mg/dL Creatinine 0.7 (0.4-1.0) mg/dL Estimated GFR (MDRD) 94 (>89) Glucose 130 H (70-100) mg/dL Calcium 8.8 (8.5-10.3) mg/dL Nasal Adenovirus (PCR) NOT DETECTED Nasal B. parapertussis DNA (PCR) NOT DETECTED Nasal Coronavir 229E PCR NOT DETECTED Nasal Coronavir HKU1 PCR NOT DETECTED Nasal Coronavir NL63 PCR NOT DETECTED Nasal Coronavir OC43 PCR NOT DETECTED Nasal Enterovir/Rhinovir PCR NOT DETECTED Nasal Influenza B PCR NOT DETECTED Nasal Influenza A PCR NOT DETECTED Nasal Parainfluen 1 PCR NOT DETECTED Nasal Parainfluen 2 PCR NOT DETECTED Nasal Parainfluen 3 PCR NOT DETECTED Nasal Parainfluen 4 PCR NOT DETECTED Nasal RSV (PCR) NOT DETECTED Nasal B.pertussis DNA PCR NOT DETECTED Nasal C.pneumoniae (PCR) NOT DETECTED Mendez Human Metapneumo PCR NOT DETECTED Nasal M.pneumoniae (PCR) NOT DETECTED Nasal SARS-CoV-2 (PCR) NOT DETECTED 09/01/21 Range/Units 16:46 WBC 8.6 (4.8-10.8) x10^3/uL RBC 4.19 L (4.20-5.40) 10^6/uL Hgb 12.4 (12.0-16.0) g/dL Hct 36.9 L (37.0-47.0) % MCV 88.1 (81.0-99.0) fL MCH 29.6 (27.0-31.0) pg MCHC 33.6 (32.0-36.0) g/dL RDW 12.1 (12.0-15.0) % Plt Count 287 (130-450) 10^3/uL MPV 8.9 (7.9-10.8) fL Neut # (Auto) 7.6 H (1.5-6.6) 10^3/uL Lymph # (Auto) 0.5 L (1.5-3.5) 10^3/uL Stone # (Auto) 0.4 (0.0-1.0) 10^3/uL Eos # (Auto) 0.1 (0.0-0.7) 10^3/uL Baso # (Auto) 0.0 (0.0-0.1) 10^3/uL Absolute Nucleated RBC 0.00 x10^3/uL Band Neuts % (Manual) Not Reportable Abnorm Lymph % (Manual) Not Reportable Nucleated RBC % 0.0 /100WBC Neutrophils # (Manual) Not Reportable Lymphocytes # (Manual) Not Reportable Monocytes # (Manual) Not Reportable Eosinophils # (Manual) Not Reportable Basophils # (Manual) Not Reportable Differential Comment MANUAL=AUTO DIFF Platelet Estimate NORMAL (130-450,000) (NORMAL) Platelet Morphology NORMAL APPEARANCE (NORMAL) RBC Morph Micro Appear NORMAL APPEARANCE (NORMAL) Sodium (135-145) mmol/L Potassium (3.5-5.0) mmol/L Chloride (101-111) mmol/L Carbon Dioxide (21-32) mmol/L Anion Gap (6-13) BUN (6-20) mg/dL Creatinine (0.4-1.0) mg/dL Estimated GFR (MDRD) (>89) Glucose (70-100) mg/dL Calcium (8.5-10.3) mg/dL Nasal Adenovirus (PCR) Nasal B. parapertussis DNA (PCR) Nasal Coronavir 229E PCR Nasal Coronavir HKU1 PCR Nasal Coronavir NL63 PCR Nasal Coronavir OC43 PCR Nasal Enterovir/Rhinovir PCR Nasal Influenza B PCR Nasal Influenza A PCR Nasal Parainfluen 1 PCR Nasal Parainfluen 2 PCR Nasal Parainfluen 3 PCR Nasal Parainfluen 4 PCR Nasal RSV (PCR) Nasal B.pertussis DNA PCR Nasal C.pneumoniae (PCR) Mendez Human Metapneumo PCR Nasal M.pneumoniae (PCR) Nasal SARS-CoV-2 (PCR) - Current Medications Current Medications: Current Medications Generic Name Dose Route Start Last Admin Trade Name Freq PRN Reason Stop Dose Admin Heparin Sodium (Porcine) 5,000 unit 09/01/21 22:00 09/02/21 05:43 Heparin 5,000 Unit/Ml Vial SUBQ 5,000 unit Q8HR SHELBY Administration Lactated Ringer's 1,000 mls @ 100 mls/hr 09/01/21 19:00 09/01/21 21:49 Lr IV 100 mls/hr .Q10H SHELBY Administration Ketorolac Tromethamine 15 mg 09/01/21 22:00 09/02/21 05:38 Ketorolac 15 Mg/Ml Vial IVP 09/06/21 21:59 15 mg Q8HR SHELBY Administration Ondansetron HCl 4 mg 09/01/21 18:23 09/02/21 05:40 Ondansetron 4 Mg/2 Ml Vial IVP 4 mg Q6HR PRN Administration Nausea / Vomiting Sodium Chloride 10 ml 09/02/21 01:00 09/02/21 00:27 Sodium Chloride Flush 0.9% 10 Ml Syringe IVP 10 ml 0100,0900,1700 SHELBY Administration - Physical Exam Wound/Incisions: positive: Healing well, No drainage. negative: Erythema General Appearance: positive: No acute distress, Alert Eyes Bilateral: positive: EOMI Respiratory: positive: No respiratory distress Cardiovascular: positive: Regular rate & rhythm Abdomen: positive: Other (Soft, non-tender, less distended, incisions CDI without erythema or drainage) Skin: positive: Color nml, Warm, Dry Extremities: positive: No pedal edema ABX Reporting Has patient been on IV antibiotics over the past 48 hours?: No Impression/Plan - Problem List Problem List: Pt is a 36 yo F with hx appendicitis s/p lap appy 08/30/21 who presents with ileus. Overall improved. Having bowel function, still distended and with nausea though. Pain controlled. Labs unremarkable, normal WBC. KUB this am with less prominent loops of bowel, appears improved to this author; rads read pending. - IV tylenol/toradol - IVF; start CLD; if tolerates and feeling better this afternoon, will advance - zofran prn - HSQ/SCDs - ambulate - plan for d/c when tolerating diet and having normal bowel function; possibly this afternoon Shahid Crowley MD General Surgery
[2021-09-02] MEDS: LACTATED RINGERS 1,000 ML IV SCH (08:25)
--- NOTE | 2021-09-02 08:57 | XRAY Report ---
PROCEDURE: Abdomen 1 View X-Ray INDICATIONS: ileus TECHNIQUE: 1 view of the abdomen were acquired. COMPARISON: 09/01/2021 FINDINGS: Surgical changes and devices: None. Bowel: No pneumoperitoneum. Moderately air distended bowel loops are seen predominantly in left abdo men improved compared to previous day although this may be due to study technique. Soft tissues: No masses; visualized solid organ contours appear normal in size. No suspicious abdom inal calcifications. Bones: No suspicious bony abnormalities. IMPRESSION: Finding is suggestive of resolving ileus with interval slightly decreased extent of cat l loop distention. No gross free air. Reviewed by: Freddy Herrera MD on 09/02/2021 8:55 AM [facility] Approved by: Freddy Herrera MD on 09/02/2021 8:55 AM [facility] Station ID: [id number]
--- NOTE | 2021-09-02 11:26 | PHARMACY PROGRESS NOTE ---
- Best Possible Medication History Admit Date and Time: 09/01/211936 Processed by: Pharmacy Medication History completed: Yes Patient Interview: Completed Secondary Source(s): Pharmacy records, Insurance records, Previous admit records As the person ultimately responsible for medication therapy, providers are able to order a medication from an existing home medication list in [facility] via the "Reconcile Routine" prior to Confirmation of that medication by service support representative. Such practice is discouraged except when the physician, in their clinical judgment, deems that a medical need exists for a medication without regard to previous use.
[2021-09-02] MEDS: CALCIUM CARBONATE CHEW 500 MG TABLET PO PRN ×2 (14:55→21:33)
[2021-09-02] MEDS: FAMOTIDINE 20 MG TABLET PO SCH ×2 (14:55→21:33)
[2021-09-02] MEDS: ACETAMINOPHEN 325 MG TABLET PO PRN (17:53)
[2021-09-03] MEDS: SODIUM CHLORIDE FLUSH 0.9% 10 ML SYRINGE IVP SCH ×3 (00:05→19:14)
[2021-09-03] MEDS: ONDANSETRON 4 MG/2 ML VIAL IVP PRN ×2 (00:05→05:33)
[2021-09-03] MEDS: ACETAMINOPHEN 325 MG TABLET PO PRN ×2 (00:13→15:24)
[2021-09-03 05:34] LABS: HGB - HEMOGLOBIN 10.1 g/dL (12.0-16.0); MEAN CORPUSCULAR HEMOGLOBIN 30.1 pg (27.0-31.0); MEAN CORPUSCULAR HGB CONC 33.7 g/dL (32.0-36.0); MEAN CORPUSCULAR VOLUME 89.3 fL (81.0-99.0); MEAN PLATELET VOLUME 8.6 fL (7.9-10.8); RED BLOOD COUNT 3.36 10^6/uL (4.20-5.40); RED CELL DISTRIBUTION WIDTH 12.1 % (12.0-15.0); WHITE BLOOD COUNT 5.7 x10^3/uL (4.8-10.8)
[2021-09-03 05:43] LABS: CALCIUM 8.3 mg/dL (8.5-10.3); CREATININE 0.8 mg/dL (0.4-1.0); POTASSIUM 3.2 mmol/L (3.5-5.0)
[2021-09-03] MEDS: HEPARIN 5,000 UNIT/ML VIAL SUBQ SCH ×3 (06:25→22:10)
[2021-09-03] MEDS: KETOROLAC 15 MG/ML VIAL IVP SCH ×3 (06:25→22:11)
--- NOTE | 2021-09-03 06:50 | PROVIDER PROGRESS NOTE ---
Subjective - General Admit Date: 09/01/21 Procedure Date: 08/30/21 Post Op Days: 4 - Review of Systems Wound/Incisions: positive: Healing well, No drainage. negative: Erythema - Other Other Information/Narrative: NAEO. Frustrated this am as still with severe nausea and bloating. Had multiple watery BMs yesterday and overnight. Tolerating some PO but also having dry heaves. Also c/o some mild RUQ pain. Remains afebrile and HDS. Objective - Patient Data Reviewed Vital Signs: Yes Vital Signs: Vital Signs x48h Temp Pulse Resp BP Pulse Ox 09/02/21 23:40 37.8 C 99 18 107/63 94 Weight: Weight 09/01/21 09/02/21 09/03/21 23:59 23:59 23:59 Weight (kg) 64.5 kg Intake & Output: Intake and Output Totals x24h 09/01/21 09/02/21 09/03/21 23:59 23:59 23:59 Intake Total 5660 100 Output Total 200 Balance -200 5660 100 - Lab Results Lab Results: 09/03/21 05:18 09/03/21 05:18 Other Lab Results: Lab Results x24hrs 09/03/21 09/03/21 Range/Units 05:18 05:18 WBC 5.7 (4.8-10.8) x10^3/uL RBC 3.36 L (4.20-5.40) 10^6/uL Hgb 10.1 L (12.0-16.0) g/dL Hct 30.0 L (37.0-47.0) % MCV 89.3 (81.0-99.0) fL MCH 30.1 (27.0-31.0) pg MCHC 33.7 (32.0-36.0) g/dL RDW 12.1 (12.0-15.0) % Plt Count 226 (130-450) 10^3/uL MPV 8.6 (7.9-10.8) fL Sodium 138 (135-145) mmol/L Potassium 3.2 L (3.5-5.0) mmol/L Chloride 102 (101-111) mmol/L Carbon Dioxide 26 (21-32) mmol/L Anion Gap 10.0 (6-13) BUN 9 (6-20) mg/dL Creatinine 0.8 (0.4-1.0) mg/dL Estimated GFR (MDRD) 81 L (>89) Glucose 106 H (70-100) mg/dL Calcium 8.3 L (8.5-10.3) mg/dL - Current Medications Current Medications: Current Medications Generic Name Dose Route Start Last Admin Trade Name Freq PRN Reason Stop Dose Admin Acetaminophen 650 mg 09/02/21 14:43 09/03/21 00:13 Acetaminophen 325 Mg Tablet PO 650 mg Q6HR PRN Administration Pain or Fever > 38C (100.4F) Calcium Carbonate/Glycine 500 mg 09/02/21 14:40 09/02/21 21:33 Calcium Carbonate Chew 500 Mg Tablet PO 500 mg Q4H PRN Administration Heartburn Famotidine 20 mg 09/02/21 15:00 09/02/21 21:33 Famotidine 20 Mg Tablet PO 20 mg BID [facility] Administration Heparin Sodium (Porcine) 5,000 unit 09/01/21 22:00 09/03/21 06:25 Heparin 5,000 Unit/Ml Vial SUBQ Not Given Q8HR [facility] Ketorolac Tromethamine 15 mg 09/01/21 22:00 09/03/21 06:25 Ketorolac 15 Mg/Ml Vial IVP 09/06/21 21:59 Not Given Q8HR [facility] Ondansetron HCl 4 mg 09/01/21 18:23 09/03/21 05:33 Ondansetron 4 Mg/2 Ml Vial IVP 4 mg Q6HR PRN Administration Nausea / Vomiting Sodium Chloride 10 ml 09/02/21 01:00 09/03/21 00:05 Sodium Chloride Flush 0.9% 10 Ml Syringe IVP 10 ml 0100,0900,1700 [facility] Administration - Physical Exam Wound/Incisions: positive: Healing well General Appearance: positive: No acute distress, Alert Eyes Bilateral: positive: EOMI Respiratory: positive: No respiratory distress Cardiovascular: positive: Regular rate & rhythm Abdomen: positive: Other (soft, mildly distended and tympanitic, TTP around incisions, rest of abdomen non-tender, no rebound or guarding) Skin: positive: No rash, Warm, Dry Neurologic/Psychiatric: positive: Oriented x3 Impression/Plan - Problem List Problem List: Pt is a 36 yo F s/p appendectomy on 08/30/20 who p/w nausea. Clinically stable/mildly improving. Tolerating some PO and having bowel function but also still with some distension and nausea. Per nursing taking poor PO. Unlikely developing abscess given normal vitals and WBC. However, if does not progress may need to obtain CT scan; can also consider RUQ US if pain persists. - re-start IVF (stopped yesterday evening after started taking PO better) - continue ad brice PO intake - continue zofran (helping per pt) and add reglan (will get baseline ekg to make sure QT interval ok) - trend labs; repleting K today - ambulate - HSQ/SCDs Dispo: home when tolerating diet Shahid Crowley MD General Surgery
[2021-09-03] MEDS ORDERED: SCOPOLAMINE PATCH TOP SCH (08:00)
[2021-09-03] MEDS: METOCLOPRAMIDE 10 MG/2 ML VIAL IVP PRN ×3 (08:26→21:19)
[2021-09-03] MEDS: POTASSIUM CHLOR 10 MEQ/100 ML 10 MEQ/100 ML BAG IV SCH ×2 (08:27→19:13)
[2021-09-03] MEDS: FAMOTIDINE 20 MG TABLET PO SCH (08:27)
[2021-09-03] MEDS: LACTATED RINGERS 1,000 ML IV SCH ×2 (08:27→23:38)
[2021-09-03] MEDS ORDERED: ACETAMINOPHEN 1,000 MG/100 ML 100 ML IV PRN (20:00)
[2021-09-03] MEDS ORDERED: iohexoL-300 100 ML VIAL ONE (20:09)
[2021-09-03] MEDS ORDERED: IOPAMIDOL-300 50 ML VIAL ONE (20:09)
[2021-09-03] MEDS: LORazepam 2 MG/ML VIAL IVP PRN ×2 (21:19→23:31)
[2021-09-03] MEDS ORDERED: iohexoL-300 100 ML VIAL IVP ONE (21:32)
[2021-09-03] MEDS ORDERED: IOPAMIDOL-300 50 ML VIAL PO ONE (21:39)
--- NOTE | 2021-09-03 23:09 | CT Report ---
PROCEDURE: Abdomen/Pelvis W INDICATIONS: Abdominal pain and distension following appendecto CONTRAST: IV CONTRAST: Isovue 300 ml: 100 PO CONTRAST: Isovue 300 ml300 TECHNIQUE: After the administration of weight appropriate dose of intravenous contrast, 5 mm thick sections acqu ired from the diaphragms to the symphysis. 5 mm thick coronal and sagittal reformats were acquired. For radiation dose reduction, the following was used: automated exposure control, adjustment of mA and/or kV according to patient size. Oral contrast was administered. COMPARISON: CT dated 08/29/2021. FINDINGS: Image quality: Excellent. ABDOMEN: Lung bases: Small right pleural effusion with associated compressive atelectasis.. Heart size is nor mal. Bilateral breast implants are noted. Solid organs: Liver and spleen are normal in size and enhancement. Previously seen 5 mm hepatic dome hypodensity is again noted and likely represents a cyst or hemangioma. Gallbladder is unremarkable. Biliary system is non dilated. Pancreas enhances normally. No adrenal nodules. Kidneys demonstrat e normal size and enhancement, without hydronephrosis. Peritoneum and bowel: Interval postsurgical changes from laparoscopic appendectomy. Mild stranding an d fluid noted in the right lower quadrant likely from recent appendectomy. Oral contrast is visualize d within small bowel, proximal to the surgical site. There is mild distention of multiple small bowel loops seen throughout the abdomen but predominantly in the ventral abdomen and left abdomen. There i s also minimal circumferential small bowel wall thickening within the right abdomen. No free air seen . There is a moderate amount of free fluid seen in the pelvis which measures slightly higher than flu id attenuation. There is also suggestion of mild peritoneal enhancement adjacent to the fluid. No def inite rim-enhancing fluid collection seen. Nodes and vessels: No retroperitoneal or mesenteric adenopathy by size criteria. Aorta and inferior vena cava are normal in size. Miscellaneous: No ventral hernias. PELVIS: Genitourinary: Bladder wall thickness is normal. Air within the urinary bladder likely related to r ecent catheterization. Recommend clinical correlation. Redemonstration of cystic lesion in the right adnexa/ovary likely representing an ovarian cyst. Miscellaneous: No inguinal hernias or adenopathy. Bones: No suspicious bony lesions. No vertebral body compression fractures. IMPRESSION: 1. Expected postsurgical changes from interval laparoscopic appendectomy with postsurgical soft tissu e changes in the right lower quadrant. 2. Moderate amount of pelvic free fluid with mild peritoneal enhancement likely representing reactive changes from recent surgery. However, recommend clinical correlation for symptoms of infection. No e vidence for organized, rim-enhancing fluid collections. 3. Numerous scattered loops of distended small bowel scattered throughout the abdomen likely represen ting postoperative ileus. 4. Minimal circumferential wall thickening of the small bowel most pronounced in the right abdomen. F indings are nonspecific and may represent inflammatory changes versus partial decompression. A concur rent enteritis not completely excluded. Recommend clinical correlation and close clinical surveillanc e. Reviewed by: William Rodriguez MD on 09/03/2021 11:08 PM PST Approved by: William Rodriguez MD on 09/03/2021 11:08 PM PST Station ID: [id number]
[2021-09-04] MEDS: POTASSIUM CHLOR 10 MEQ/100 ML 10 MEQ/100 ML BAG IV SCH (00:49)
[2021-09-04] MEDS: SODIUM CHLORIDE FLUSH 0.9% 10 ML SYRINGE IVP SCH ×2 (01:01→08:40)
[2021-09-04] MEDS: ONDANSETRON 4 MG/2 ML VIAL IVP PRN (03:41)
[2021-09-04] MEDS: LORazepam 2 MG/ML VIAL IVP PRN ×2 (03:48→06:27)
[2021-09-04 05:59] LABS: HCT - HEMATOCRIT 29.4 % (37.0-47.0); HGB - HEMOGLOBIN 10.1 g/dL (12.0-16.0); MEAN CORPUSCULAR HEMOGLOBIN 30.1 pg (27.0-31.0); MEAN CORPUSCULAR HGB CONC 34.4 g/dL (32.0-36.0); MEAN CORPUSCULAR VOLUME 87.5 fL (81.0-99.0); MEAN PLATELET VOLUME 8.7 fL (7.9-10.8); RED BLOOD COUNT 3.36 10^6/uL (4.20-5.40); RED CELL DISTRIBUTION WIDTH 12.1 % (12.0-15.0); WHITE BLOOD COUNT 5.1 x10^3/uL (4.8-10.8)
[2021-09-04 06:07] LABS: CALCIUM 8.4 mg/dL (8.5-10.3); CREATININE 0.7 mg/dL (0.4-1.0); POTASSIUM 3.1 mmol/L (3.5-5.0)
[2021-09-04] MEDS: KETOROLAC 15 MG/ML VIAL IVP SCH (06:22)
[2021-09-04] MEDS: HEPARIN 5,000 UNIT/ML VIAL SUBQ SCH (06:22)
[2021-09-04] MEDS ORDERED: PANTOPRAZOLE 40 MG VIAL IVP SCH (07:00)
[2021-09-04 07:02] VITALS: BP 113/56
--- NOTE | 2021-09-04 08:15 | Discharge Plan ---
Discharge Plan Problem Reviewed?: Yes Disposition: Home, Self Care Condition: Stable Prescriptions: LORazepam [Ativan] 0.5 mg PO Q6H PRN #20 tablet PRN Reason: Nausea / Vomiting Ondansetron Odt [Zofran Odt] 4 mg TL Q6H PRN #20 tablet PRN Reason: Nausea / Vomiting Diet: Regular Activity Restrictions: No Restrictions Shower Restrictions: No Driving Restrictions: No Plan of Treatment: Remain hydrated at home. Return to the emergency department for worsening symptoms Assessment: Enteritis No Smoking: If you smoke, Please STOP! Call for help. Follow-up with: Provider,Other [Primary Care Provider] -
--- NOTE | 2021-09-17 12:45 | DISCHARGE SUMMARY ---
"Discharge Summary Admit Date: 09/01/21 Discharge Date: 09/04/21 Discharging Provider: Tierney Primary Care Provider: MELANIE Code Status: Attempt Resuscitation Condition at Discharge: Stable Discharge Disposition: 01 Home, Self Care - DIAGNOSES Admission Diagnoses: Nausea and diarrhea Discharge Diagnoses with Status of Each Condition: Improved - HPI History of Present Illness: Pt is a 36 yo F with s/p appendectomy 08/30/21 who presents with abdominal distension and n/v. Reports stable distension since surgery. [place] like needed to have BM but none since day prior to surgery. Emesis today, just what she ate, NBNB. Also reported low fever at home. Had taken some oxy left over from previous surgery and some tylenol. No pain meds since this am. Pain with movement/palpation at incisions; no redness or drainage from incisions. In ED still with some nausea; waxes and wanes. Currently afebrile, initially mildy tachy in 100s, repeat in 80s; normotensive. Plain film imaging with dilated loops of small bowel in central abdomen with air fluid levels; some air in colon as well. - CONSULTS | PROCEDURES Consultations: None Procedures: None - HOSPITAL COURSE Hospital Course: [facility] and [facility] care. Her symptoms seem to wax and wane but she continued to have profuse diarrhea with some nausea. C. difficile toxin was checked and was negative. CT scan of the abdomen and pelvis revealed thickened loops of small bowel but no evidence of abscess.Patient began to tolerate p.o. quite well although diarrhea continued. Her lab evaluation was reassuring. She elected to go home with symptomatic treatment with Imodium and keep her follow-up appointment previously scheduled with [facility]. - ALLERGIES Allergies/Adverse Reactions: Allergies Allergy/AdvReac Type Severity Reaction Status Date / Time Pertussis Vaccines Allergy Unknown Verified 09/01/21 16:09 - MEDICATIONS Home Medications: Ambulatory Orders Medication Instructions Recorded Confirmed traMADol [Ultram] 50 mg PO Q4-6H #10 tablet 08/30/21 09/02/21 Acetaminophen [Tylenol] 1,000 mg PO Q6H PRN 09/02/21 09/02/21 Biotin 5 mg PO DAILY 09/02/21 09/02/21 Calcium Carbonate [Calcium] 1,200 mg PO DAILY 09/02/21 09/02/21 Cholecalciferol (Vitd3)/Vit K2 1 each PO DAILY 09/02/21 09/02/21 [K2-D3 10,000 Unit Capsule] Letrozole 2.5 mg PO DAILY 09/02/21 09/02/21 Leuprolide [Lupron] 7.5 mg IM Q28D 09/02/21 09/02/21 Multivitamin [Theragran] 1 each PO DAILY 09/02/21 09/02/21 Senna [Senokot] 8.6 mg PO DAILY 09/02/21 09/02/21 oxyCODONE [Roxicodone] 5 mg PO Q4H PRN 09/02/21 09/02/21 LORazepam [Ativan] 0.5 mg PO Q6H PRN #20 tablet 09/04/21 Ondansetron Odt [Zofran Odt] 4 mg TL Q6H PRN #20 tablet 09/04/21 - PHYSICAL EXAM AT DISCHARGE General Appearance: positive: No acute distress, Alert Eyes Bilateral: positive: Normal inspection, PERRL, EOMI Neck: positive: Nml inspection Respiratory: positive: No respiratory distress, Breath sounds nml Cardiovascular: positive: Regular rate & rhythm Abdomen: positive: Nml bowel sounds, Tenderness. negative: Guarding, Rebound Skin: positive: Color nml Neurologic/Psychiatric: positive: Oriented x3 - LABS Result Diagrams: 09/04/21 05:38 09/04/21 05:38 - QUALITY (Female Hip Fx Only) Was patient sent home on osteoporosis medication?: No - FOLLOW UP Follow Up: Keep previously scheduled post op follow up visit - TIME SPENT Time Spent in Discharge (Minutes): 15"
== END 2021-09-04 10:35 | disposition home or self-care (01) ==
LOC: ED 15:56 → MS3 18:23 → UNDOADMIN 18:23 → MS3 18:23 → UNDOADMIN 19:37 → UNDODISIN 09-04 10:35
PROVIDERS: ADMIT Surgery; ATTEND Surgery
DX: K91.89 Other postprocedural complications and disorders of digestive system (principal); K56.7 Ileus, unspecified; Y83.6 Removal of other organ (partial) (total) as the cause of abnormal reaction of the patient, or of later complication, without mention of misadventure at the time of the procedure; Z90.49 Acquired absence of other specified parts of digestive tract; Z20.822 Contact with and (suspected) exposure to COVID-19; R00.0 Tachycardia, unspecified
CPT/HCPCS: 0202U; 36415; 74018; 74022; 74177; 80048; 85025; 85027; 87493; 87798; 93005; 96361; 96365; 96366; 96374; 96375; 96376; 99224; 99225; 99283; 99285; A9270; G0378; J0131; J2060; J2765; J3490; J7120; Q9967